=== PATIENT | male | born 1950 | race Caucasian/White ===

== ENCOUNTER 2020-01-10 11:04 | Observation (INO) ==
[2020-01-10 11:37] LABS: Basophils # 0.1 10*3/uL (0.0-0.2); Basophils % 0.7 % (0.0-0.8); Eosinophils # 0.1 10*3/uL (0.0-0.87); Eosinophils % 0.6 % (0.00-10.9); Hematocrit 47.6 VOL% (42.0-52.0); Hemoglobin 16.7 GM/DL (14.0-18.0); Immature Granulocytes % 0.3 %; Immature Granulocytes Absolute 0.03 #; Lymphocytes # 1.4 10*3/uL (1.4-4.0); Lymphocytes % 14.1 % (21.2-54.2); Mean Corpuscular HGB Conc 35.1 GM/DL (32-36); Mean Platelet Volume 9.7 FL (9.6-12.0); Monocytes % 4.6 % (1.7-12.7); Neutrophils % 79.7 % (38.7-73.9); Platelet Count 165 T/CUMM (130-400); Red Blood Count 5.23 MC/CUMM (3.8-5.5); Red Cell Distribution Width 12.6 % (9.3-17.3); White Blood Count 9.7 T/CUMM (4-12)
[2020-01-10 11:48] LABS: PT Patient Result 10.9 SECS (9.8-11.9); Partial Thromboplastin Time 27.9 SECS (23.9-33.8)
[2020-01-10] MEDS ORDERED: ASPIRIN 325 MG TABLET PO STA (12:00)
[2020-01-10 12:02] LABS: Bilirubin,Total 0.6 MG/DL (0.2-1.0); Calcium 9.3 MG/DL (8.5-10.1); Osmolality,Calculated 278.8 MOS/KG (273-304); Total Protein 7.2 G/DL (6.4-8.3)
[2020-01-10] MEDS ORDERED: DEXTROSE 50% 25 GM/50 ML VIAL IV PRN (13:39)
[2020-01-10] MEDS ORDERED: GLUCAGON 1 MG VIAL IM PRN (13:39)
[2020-01-10] MEDS ORDERED: LABETALOL 20 MG/4 ML SYRINGE IV PRN (14:22)
[2020-01-10] MEDS ORDERED: LACTULOSE 20 GM/30 ML UDCUP PO PRN (14:22)
[2020-01-10] MEDS ORDERED: ACETAMINOPHEN 325 MG TABLET PO PRN (14:22)
[2020-01-10] MEDS ORDERED: hydrALAZINE 20 MG/1 ML VIAL IV PRN (14:22)
[2020-01-10] MEDS: ENOXAPARIN 40 MG/0.4 ML SYRINGE SUBCUT SCH (16:12)
[2020-01-10] MEDS: SODIUM CHLORIDE 0.9% 1,000 ML IV SCH (16:12)
[2020-01-10] MEDS: INSULIN LISPRO 100 UNIT/ML SUBCUT SCH ×2 (17:47→21:34)
[2020-01-10] MEDS: ONDANSETRON 4 MG/2 ML VIAL IV PRN ×2 (18:13→23:19)
[2020-01-10 20:00] LABS: Barbiturates Screen,Urine Negative (Negative); Benzodiazepines Screen,Urine Negative (Negative); Cannabinoid Screen,Urine Negative (Negative); Opiate Screen,Urine Positive (Negative); Phencyclidine Screen,Urine Negative (Negative)
[2020-01-10] MEDS: ATORVASTATIN 40 MG TABLET PO SCH (21:25)
[2020-01-11] MEDS: SODIUM CHLORIDE 0.9% 1,000 ML IV SCH ×3 (00:15→21:01)
[2020-01-11 04:49] LABS: Basophils # 0.1 10*3/uL (0.0-0.2); Basophils % 0.8 % (0.0-0.8); Eosinophils # 0.1 10*3/uL (0.0-0.87); Hematocrit 42.8 VOL% (42.0-52.0); Hemoglobin 14.9 GM/DL (14.0-18.0); Immature Granulocytes % 0.3 %; Immature Granulocytes Absolute 0.02 #; Lymphocytes # 1.9 10*3/uL (1.4-4.0); Lymphocytes % 28.8 % (21.2-54.2); Mean Corpuscular HGB Conc 34.8 GM/DL (32-36); Mean Corpuscular Volume 91.5 FL (87-102); Mean Platelet Volume 10.1 FL (9.6-12.0); Monocytes % 8.5 % (1.7-12.7); Neutrophils % 59.6 % (38.7-73.9); Platelet Count 142 T/CUMM (130-400); Red Blood Count 4.68 MC/CUMM (3.8-5.5); Red Cell Distribution Width 12.4 % (9.3-17.3); White Blood Count 6.6 T/CUMM (4-12)
[2020-01-11 05:15] LABS: Risk Ratio 2.28; VLDL CHOLESTEROL 28.8 MG/DL
[2020-01-11 05:21] LABS: Albumin 3.2 G/DL (3.4-5.0); Bilirubin,Total 0.8 MG/DL (0.2-1.0); Calcium 8.6 MG/DL (8.5-10.1); Osmolality,Calculated 280.5 MOS/KG (273-304); Thyroid Stimulating Hormone 0.867 uIU/ml (0.358-3.74); Total Protein 5.7 G/DL (6.4-8.3)
[2020-01-11] MEDS: GABAPENTIN 300 MG CAPSULE PO SCH ×2 (09:20→21:02)
[2020-01-11] MEDS: ASPIRIN CHEW 81 MG TABLET PO SCH (09:20)
[2020-01-11] MEDS: INSULIN LISPRO 100 UNIT/ML SUBCUT SCH ×4 (09:20→21:03)
[2020-01-11] MEDS: traMADol 50 MG TABLET PO SCH ×2 (09:23→21:03)
[2020-01-11] MEDS: PANTOPRAZOLE 40 MG TABLET PO SCH (09:23)
[2020-01-11] MEDS: ONDANSETRON 4 MG/2 ML VIAL IV PRN (10:35)
[2020-01-11] MEDS ORDERED: DIAZEPAM 10 MG/2 ML SYRINGE IV ONE (10:56)
[2020-01-11] MEDS: LINACLOTIDE 145 MCG CAPSULE PO SCH (11:10)
[2020-01-11] MEDS: DOCUSATE SODIUM 100 MG CAPSULE PO PRN (13:23)
[2020-01-11] MEDS: ENOXAPARIN 40 MG/0.4 ML SYRINGE SUBCUT SCH (17:08)
[2020-01-11] MEDS: ATORVASTATIN 40 MG TABLET PO SCH (21:02)
[2020-01-11] MEDS: CALCIUM CARBONATE CHEW 500 MG TABLET PO PRN (21:02)
[2020-01-12] MEDS: SODIUM CHLORIDE 0.9% 1,000 ML IV SCH ×3 (04:10→16:54)
[2020-01-12 06:13] LABS: Basophils # 0.1 10*3/uL (0.0-0.2); Basophils % 0.9 % (0.0-0.8); Eosinophils # 0.2 10*3/uL (0.0-0.87); Eosinophils % 3.1 % (0.00-10.9); Hematocrit 42.3 VOL% (42.0-52.0); Hemoglobin 14.9 GM/DL (14.0-18.0); Immature Granulocytes % 0.2 %; Immature Granulocytes Absolute 0.01 #; Lymphocytes # 2.3 10*3/uL (1.4-4.0); Lymphocytes % 39.1 % (21.2-54.2); Mean Corpuscular HGB Conc 35.2 GM/DL (32-36); Mean Platelet Volume 10.6 FL (9.6-12.0); Monocytes % 9.9 % (1.7-12.7); Neutrophils % 46.8 % (38.7-73.9); Platelet Count 126 T/CUMM (130-400); Red Cell Distribution Width 12.4 % (9.3-17.3); White Blood Count 5.8 T/CUMM (4-12)
[2020-01-12 06:30] LABS: Albumin 3.2 G/DL (3.4-5.0); Bilirubin,Total 1.1 MG/DL (0.2-1.0); Calcium 8.3 MG/DL (8.5-10.1); Osmolality,Calculated 280.3 MOS/KG (273-304); Total Protein 5.6 G/DL (6.4-8.3)
[2020-01-12] MEDS: CALCIUM CARBONATE CHEW 500 MG TABLET PO PRN (09:17)
[2020-01-12] MEDS: PANTOPRAZOLE 40 MG TABLET PO SCH (09:18)
[2020-01-12] MEDS: GABAPENTIN 300 MG CAPSULE PO SCH (09:18)
[2020-01-12] MEDS: ASPIRIN CHEW 81 MG TABLET PO SCH (09:18)
[2020-01-12] MEDS: DOCUSATE SODIUM 100 MG CAPSULE PO PRN (09:18)
[2020-01-12] MEDS: LINACLOTIDE 145 MCG CAPSULE PO SCH ×2 (09:18→09:21)
[2020-01-12] MEDS: traMADol 50 MG TABLET PO SCH (09:18)
[2020-01-12] MEDS: INSULIN LISPRO 100 UNIT/ML SUBCUT SCH ×3 (09:19→17:13)
[2020-01-12] MEDS: ONDANSETRON 4 MG/2 ML VIAL IV PRN (16:21)
[2020-01-12] MEDS: ENOXAPARIN 40 MG/0.4 ML SYRINGE SUBCUT SCH (16:22)
[2020-01-12 19:19] VITALS: BP 149/67
== END 2020-01-12 18:28 | disposition home or self-care (01) ==
LOC: N.ED 11:04 → N.EDINP 11:04 → N.TELES 15:29
PROVIDERS: ADMIT Internal Medicine; ATTEND Internal Medicine